=== PATIENT | male | born 1980 | race African-American/Black ===

== ENCOUNTER 2018-03-28 14:53 | Emergency (ER) | payer OTHER ==
--- NOTE | 2018-03-28 14:56 | PDOC ---
History of Present Illness - History of Present Illness Initial Comments: 37 year old male with PMH of cholelithiasis presenting with sudden onset nausea , vomiting, diarrhea, and throat burning earlier today. States that he was at work as a cyber security manager then had sudden onset nausea with vomiting with blood specs noticed in the vomit which transitioned to larger blood specs after the second episode of the vomit. He has occasional diarrhea that is related to particular foods and did mention he ate a lot of greasy food last night but states that he may have had some dark red colored stools without blood on his toilet paper or obvious blood in the toilet. Denies any abdominal pain, fevers, chest pain, SOB, or other symptoms. He has never had an endoscopy or colonoscopy. No one else in the house with similar symptoms. 03/28/18 15:24 <Quan Issa - Last Filed: 03/28/18 16:36> <Pj Collier - Last Filed: 03/28/18 16:54> - General Chief Complaint: Vomiting/Diarrhea Stated Complaint: vomiting/diarrhea Time Seen by Provider: 03/28/18 14:56 Past History - Suicide/Smoking/Psychosocial Hx Smoking Status: No Smoking History: Never smoked Number of Cigarettes Smoked Daily: 0 <Quan Issa - Last Filed: 03/28/18 16:36> <Pj Collier - Last Filed: 03/28/18 16:54> - Past Medical History Allergies/Adverse Reactions: Allergies Allergy/AdvReac Type Severity Reaction Status Date / Time Penicillins Allergy UNKNOWN Verified 03/28/18 14:54 Home Medications: Ambulatory Orders No Home Medications 0 dose .ROUTE UTDICT 10/23/11 Mag Hydrox/Al Hydrox/Simeth [Mylanta Suspension -] 30 ml PO Q6H #1 bottle Ondansetron [Zofran *Odt*] 8 mg SL BID PRN 5 Days #10 od.tablet 03/28/18 Review of Systems - Review of Systems Constitutional: No: Chills, Diaphoresis, Fever HEENTM: No: Eye Pain, Blurred Vision Respiratory: No: Cough, Shortness of Breath, Wheezing Cardiac (ROS): No: Chest Pain ABD/GI: Yes: Diarrhea, Nausea, Vomiting. No: Abd. Pain w/ defecation, Blood Streaked Bowels, Difficulty Swallowing, Poor Appetite, Indigestion : No: Burning, Dysuria, Discharge Musculoskeletal: No: Back Pain, Joint Pain Integumentary: No: Bruising, Change in Color, Erythema Neurological: No: Headache, Numbness, Paresthesia Psychiatric: No: Anxiety, Depression <Luis ManuelRohitsusie - Last Filed: 03/28/18 16:36> *Physical Exam - Physical Exam General Appearance: Yes: Nourished, Appropriately Dressed. No: Apparent Distress HEENT: positive: EOMI, ROXANNA, Normal ENT Inspection, Normal Voice Neck: positive: Trachea midline, Normal Thyroid, Supple. negative: Tender, Rigid Respiratory/Chest: positive: Lungs Clear, Normal Breath Sounds. negative: Chest Tender, Respiratory Distress, Accessory Muscle Use Cardiovascular: positive: Regular Rhythm, Regular Rate Gastrointestinal/Abdominal: positive: Normal Bowel Sounds, Tender (mild epigastric tenderness), Flat, Soft Rectal Exam: positive: normal rectal tone, hemorrhoids. negative: normal exam ( hemorrhoid at 12 oclock), melena Musculoskeletal: positive: Normal Inspection. negative: Decreased Range of Motion Extremity: positive: Normal Capillary Refill, Normal Inspection, Normal Range of Motion. negative: Tender Integumentary: positive: Normal Color, Dry, Warm Neurologic: positive: Fully Oriented, Alert, Normal Mood/Affect, Normal Response , Motor Strength 5/5 <Quan Issa - Last Filed: 03/28/18 16:36> - Vital Signs Last Vital Signs Temp Pulse Resp BP Pulse Ox 97.5 F L 82 18 140/98 98 03/28/18 16:39 03/28/18 16:39 03/28/18 16:39 03/28/18 16:39 03/28/18 16:39 <Pj Collier - Last Filed: 03/28/18 16:54> Moderate Sedation - Procedure Monitoring Vital Signs: Procedure Monitoring Vital Signs Temperature 97.5 F L 03/28/18 16:39 Pulse Rate 82 03/28/18 16:39 Respiratory Rate 18 03/28/18 16:39 Blood Pressure 140/98 03/28/18 16:39 O2 Sat by Pulse Oximetry (%) 98 03/28/18 16:39 <Pj Collier - Last Filed: 03/28/18 16:54> ED Treatment Course - LABORATORY CBC & Chemistry Diagram: 03/28/18 15:24 03/28/18 15:24 <Quan Issa - Last Filed: 03/28/18 16:36> - LABORATORY CBC & Chemistry Diagram: 03/28/18 15:24 03/28/18 15:24 - ADDITIONAL ORDERS Additional order review: Laboratory Results 03/28/18 03/28/18 03/28/18 15:24 15:24 15:24 PT with INR 11.8 INR 1.06 Sodium 136 Potassium 3.7 Chloride 102 Carbon Dioxide 22 Anion Gap 12 BUN 12 Creatinine 1.0 Creat Clearance w eGFR > 60 Random Glucose 85 Calcium 9.6 Total Bilirubin 0.6 AST 24 ALT 23 Alkaline Phosphatase 61 Total Protein 8.0 Albumin 4.4 Total Amylase 94 Stool Occult Blood Negative 03/28/18 15:24 RBC 5.25 MCV 83.4 MCHC 33.5 RDW 12.5 MPV 9.2 Neutrophils % 71.7 Lymphocytes % 17.7 Monocytes % 8.0 Eosinophils % 2.1 Basophils % 0.5 - Medications Given in the ED: ED Medications Discontinued Medications Generic Name Dose Route Start Last Admin Trade Name Freq PRN Reason Stop Dose Admin Ondansetron HCl 4 mg 03/28/18 15:22 03/28/18 15:38 Zofran Injection IVPUSH 03/28/18 15:23 4 mg ONCE ONE Administration Pantoprazole Sodium 40 mg 03/28/18 15:21 03/28/18 15:38 Protonix Iv IVPUSH 03/28/18 15:22 40 mg ONCE ONE Administration Sodium Chloride 1,000 ml 03/28/18 15:21 03/28/18 15:38 Normal Saline - IV 03/28/18 15:22 1,000 ml ONCE ONE Administration <Pj Collier - Last Filed: 03/28/18 16:54> Medical Decision Making - Medical Decision Making 37 year old male with nausea, vomiting, and diarrhea of sudden onset with blood specs in the vomit and reddish material in the stool. Denies any previous history of this. He denies drinking. He does have a "sensitive stomach" and admits to occasional diarrhea with greasy foods but never any bleeding. 03/28/18 15:37 Labs stable and patient asymptomatic in our ED. Stool occult blood negative. Tolerated PO liquid and crackers by DC. Likely aan episode of a Vita-Hammer tear from his vomiting which is not unusual for him after eating greasy foods. THis could also be a viral gastroenteritis given the season. Will DC patient zofran and Maalox with GI follow up for further workup. 03/28/18 16:36 <Quan Issa - Last Filed: 03/28/18 16:36> *DC/Admit/Observation/Transfer <Quan Issa - Last Filed: 03/28/18 16:36> <Gabriel Collierele - Last Filed: 03/28/18 16:54> Diagnosis at time of Disposition: Nausea & vomiting Qualifiers: Vomiting type: unspecified Vomiting Intractability: non-intractable Qualified Code(s): R11.2 - Nausea with vomiting, unspecified - Discharge Dispostion Disposition: HOME Condition at time of disposition: Stable - Prescriptions Prescriptions: Mag Hydrox/Al Hydrox/Simeth [Mylanta Suspension -] 30 ml PO Q6H #1 bottle Ondansetron [Zofran *Odt*] 8 mg SL BID PRN 5 Days #10 od.tablet PRN Reason: Nausea And/Or Vomiting - Referrals Referrals: Jessica Bella MD [Staff Physician] - - Patient Instructions Printed Discharge Instructions: DI for Vomiting -- Adult Additional Instructions: Please use the zofran up to twice a day for nausea or vomiting. Please use the Maalox for any stomach burning that you may feel. You have to improve your diet and avoid spicy, fried, or greasy foods. Please make an a appointment with the gastroenterologsit (stomach doctor) to have further workup to see why your stomach is so sensitive. - Post Discharge Activity Forms/Work/School Notes: Back to Work
[2018-03-28 15:07] VITALS: BMI 37.3
[2018-03-28] MEDS ORDERED: SODIUM CHLORIDE 0.9% 500 ML INFUS.BAG IV ONE (15:21)
[2018-03-28] MEDS ORDERED: PANTOPRAZOLE SODIUM 40 MG VIAL IVPUSH ONE (15:21)
[2018-03-28] MEDS ORDERED: ONDANSETRON 4 MG/2 ML VIAL IVPUSH ONE (15:22)
[2018-03-28] MEDS ORDERED: PANTOPRAZOLE SODIUM 40 MG VIAL ONE (15:29)
[2018-03-28] MEDS ORDERED: ONDANSETRON 4 MG/2 ML VIAL ONE (15:29)
[2018-03-28 15:56] LABS: BASO % 0.5 % (0-2.0); EOS % 2.1 % (0-4.5); HEMATOCRIT 43.7 % (35.4-49); HEMOGLOBIN 14.6 GM/dl (11.7-16.9); INR 1.06 (0.82-1.09); LYMPH % 17.7 % (8-40); MCH 27.9 pg (25.7-33.7); MCHC 33.5 g/dl (32.0-35.9); MEAN CELL VOLUME 83.4 fl (80-96); MEAN PLT VOLUME 9.2 fl (7.5-11.1); NEUT % 71.7 % (42.8-82.8); PLATELET COUNT 247 K/MM3 (134-434); PROTHROMBIN TIME (PATIENT) 11.8 SEC (10.2-13.0); RBC 5.25 M/mm3 (4.00-5.60); RDW 12.5 % (11.9-15.9); WHITE BLOOD COUNT 8.7 K/mm3 (4.0-10.8)
[2018-03-28 15:58] LABS: ALBUMIN 4.4 g/dl (3.4-5.0); ALK PHOS 61 U/L (45-117); AMYLASE 94 U/L (25-115); ANION GAP 12 MMOL/L (8-16); BILIRUBIN,TOTAL 0.6 mg/dl (0.2-1); BLOOD UREA NITROGEN 12 mg/dl (7-18); CALCIUM 9.6 mg/dl (8.5-10); CHLORIDE 102 mmol/L (98-107); CO2 22 mmol/L (21-32); GLUCOSE,RANDOM 85 mg/dl (74-106); POTASSIUM 3.7 mmol/L (3.5-5.1); SGOT/AST 24 U/L (15-37); SGPT/ALT 23 U/L (13-61); SODIUM 136 mmol/L (136-145)
--- NOTE | 2018-03-28 16:11 | PDOC ---
Attending Attestation - Resident Resident Name: Luis ManuelMiladionnemari - ED Attending Attestation I have performed the following: I have examined & evaluated the patient, The case was reviewed & discussed with the resident, I agree w/resident's findings & plan - HPI HPI: 03/28/18 16:06 Healthy 37-year-old male with history of asymptomatic cholelithiasis presents now with 2 episodes of vomiting and diarrhea with concern for bloody content. Patient was in his usual state of good health, awoke this morning notably without appetite and around 1 PM had episode of nausea/vomiting with red specks and watery stool. Had second episode now describing thicker dime-sized clots with otherwise clear/yellow fluid and another episode of diarrhea. no abdominal pain, no further vomiting/diarrhea over past 2-3 hours. h/o GERD but no PUD, never had egd or c-scope, no excessive nsaid/etoh use. no surgical history. no travel/abx/diet change/sick contacts. - Physicial Exam PE: 03/28/18 16:11 Slightly elevated blood pressure, heart rate 85 on my examination Seated comfortably in stretcher in no acute distress, speaking full sentences, surrounded by family No jaundice or pallor, oropharynx clear, moist mucosa Heart is regular, lungs are clear Abdomen is protuberant but soft/nondistended/nontender, no guarding or rebound, bowel sounds are normal. Brown nonbloody stool per resident, guaiac negative - Medical Decision Making 03/28/18 16:11 Healthy 37-year-old male presents with 2 episodes of vomiting and diarrhea today , painless but questionably with bright red bloody content. Hemodynamically stable here with benign abdominal exam and no findings to suggest peritonitis, well-appearing. Question viral etiology with small and self resolved Vita- Hammer tear, seems less consistent with active GI bleed. Labs IV fluids, antiemetic, antacid Reassess 03/28/18 16:12 Labs are completely normal including no leukocytosis, normal hemoglobin, normal LFTs, lipase pending. Guaiac negative. Receiving IV fluids, no further vomiting.
[2018-03-28 16:40] VITALS: BP 140/98; PULSE 82; TEMP 97.5
[2018-03-28 16:55] LABS: LIPASE 131 U/L (73-393)
== END 2018-03-28 16:55 | disposition home or self-care (01) ==
LOC: FER 14:53
PROC: 3E033GC Introduction of Other Therapeutic Substance into Peripheral Vein, Percutaneous Approach (ICD-10-PCS; principal; 2018-03-28)
PROC: 3E0337Z Introduction of Electrolytic and Water Balance Substance into Peripheral Vein, Percutaneous Approach (ICD-10-PCS; 2018-03-28)
DX: R11.2 Nausea with vomiting, unspecified (principal)
CPT/HCPCS: 36415; 80053; 82150; 82272; 83690; 85025; 85610; 86850; 86900; 86901; 96361; 96374; 96375; 99282-25